=== PATIENT | female | born 1970 | race Caucasian/White ===

== ENCOUNTER 2016-12-24 12:41 | Observation (INO) | payer OTHER ==
--- NOTE | ~2016-12-24 | MR18 ---
[facility] A Service of [facility] RADIOLOGY TEXT RESULTS PATIENT: J LUIS CORTÉS LOCATION: [facility] 570-01 : [birth year] UNIT #: [id number] AGE: [address]: Brianna Castañeda MD SEX: F ORDER DR: [id number] [facility] [address] [facility] [place], [place] [address] [id number] E MR#: [id number] Acc #: [id number] NAME: J LUIS CORTÉS : 1970 SEX: F STUDY DATE/TIME: 12/24/2016 15:04 UNIT: [facility] ROOM: STUDY DESCRIPTION: MR Brain Wo Contrast Attending Physician: Luís Gaytan M.D. Ordering Physician: Luís Gaytan M.D. Primary Care Physician: Rena Suárez A.P.R.N. MRI CENTER REPORT This report is preliminary unless electronic signature is present. EXAM MRI brain without HISTORY Neurologic deficit, chest pain, headache, left arm pain. Woke up with symptoms at 4:30 a.m., blurred vision, tried to go to work this morning. Symptoms have been intermittent. History of hypertension and diabetes. TECHNIQUE Routine MRI of the brain was performed without contrast in the 1.5T system. There is a head CT pending samaritan from 2002. FINDINGS There is no evidence for a recent ischemic insult on the diffusion series. There is no MRI evidence for intracranial hemorrhage. Mild white matter signal abnormality nonspecific likely due to small vessel disease with too numerous to count small foci of signal abnormality in the deep white matter and periventricular white matter in particular. Major intracranial flow voids are maintained. No extraaxial fluid collection. Minor paranasal sinus disease. No sinus air-fluid level. Mastoid air cells are essentially clear. Midline structures unremarkable. No intracranial mass effect. IMPRESSION 1. There is no evidence for a recent ischemic insult on the diffusion series. 2. Mild probable sequelae of small vessel disease. STAT * RESULT Dictated by... [facility] A Service of [facility] RADIOLOGY TEXT RESULTS PATIENT: J LUIS CORTÉS LOCATION: [facility] 570-01 : [birth year] UNIT #: [id number] AGE: [address]: Brianna Castañeda MD SEX: F ORDER DR: Corazon Pugh M.D. THIS IS AN ELECTRONICALLY VERIFIED REPORT Corazon Pugh M.D. at 12/24/2016 9:32 PM ALLI/rigoberto TD: 12/24/2016 16:00 JOB #: [id number] MRI CENTER REPORT Page 1 of 1 COPY
--- NOTE | ~2016-12-24 | TH ---
Unit #: [id number] #: [id number] Patient: J LUIS CORTÉS [id number] [facility]. [address] [address] [id number] I MR#: [id number] NAME: J LUIS CORTÉS. : 1970 SEX: F STUDY DATE/TIME: 12/25/2016 UNIT: [facility] ROOM: 570 STUDY DESCRIPTION: Attending Physician: Brianna Castañeda M.D. Primary Care Physician: Rena Suárez A.P.R.N. CARDIOLOGY REPORT EXAM Exercise Cardiolite stress test, nuclear portion. PROCEDURE Using technetium 99m labeled Cardiolite, rest and stress SPECT images were obtained. Multiple SPECT images were obtained in various views including horizontal and vertical long axis and short axis views of the left ventricle. Images were obtained by gated SPECT method. Patient was administered 11.55 mCi of Cardiolite at rest. Patient was administered 32.6 mCi of Cardiolite at peak exercise. Total exercise time is 8 minutes and 7 seconds. On the stress images, there is normal perfusion noted. The rest images showed normal perfusion. Comparing rest and stress images, there is no stress-induced ischemia noted. The left ventricular ejection fraction is calculated to be 69%. There is no focal wall motion abnormality seen. CONCLUSION 1. No stress-induced ischemia noted. 2. The left ventricular ejection fraction is calculated to be 69%. 3. There is no focal wall motion abnormality seen. 4. Normal exercise Cardiolite stress test. 1. Dictated by... Koki Luna TD: 12/25/2016 14:29 JOB #: [id number] CARDIOLOGY REPORT Page 1 of 1 X Brianna Castañeda MD <ELECTRONICALLY SIGNED> 03/01/17 1429 CARDIOLOGY REPORT
--- NOTE | ~2016-12-24 | CR72 ---
[facility] A Service of [facility] RADIOLOGY TEXT RESULTS PATIENT: J LUIS CORTÉS LOCATION: [facility] 570- : [birth year] UNIT #: [id number] AGE: [address]: Brianna Castañeda MD SEX: F ORDER DR: [id number] [facility] [address] [facility]. [place], [place] [address] [id number] E MR#: [id number] Acc #: [id number] NAME: J LUIS CORTÉS. : 1970 SEX: F STUDY DATE/TIME: 12/24/2016 13:16 UNIT: [facility] ROOM: STUDY DESCRIPTION: CR Chest Single View Portable Attending Physician: Luís Gaytan M.D. Ordering Physician: Luís Gaytan M.D. Primary Care Physician: Rena Suárez A.P.R.N. MEDICAL IMAGING REPORT This report is preliminary unless electronic signature is present EXAM Chest, portable, 12/24/2016, 1316 hours. CLINICAL HISTORY 46-year-old woman complaining of chest pain and headache today. History of hypertension and diabetes and smoking. COMPARISON 09/04/2002 FINDINGS Portable upright chest demonstrates normal cardiac, mediastinal, and hilar contours. The lungs are clear. There is no effusion or pneumothorax. IMPRESSION No acute cardiopulmonary findings. No appreciable change from 09/04/2002. Dictated by... Pam De Dios M.D. THIS IS AN ELECTRONICALLY VERIFIED REPORT Pam De Dios M.D. at 12/25/2016 9:27 AM ALEISHA/sherlyn TD: 12/24/2016 14:31 JOB #: [id number] MEDICAL IMAGING REPORT Page 1 of 1 COPY
--- NOTE | ~2016-12-24 | EKG ---
PATIENT: J LUIS CORTÉS UNIT #: [id number] Ventricular Rate: 89 BPM Atrial Rate: 89 BPM P-R Interval: 162 ms QRS Duration: 96 ms Q-T Interval: 360 ms QTC Calculation(Bezet): 438 ms P M[place]: 46 degrees Calculated R [place]: 24 degrees Calculated T Marm[place]: 53 degrees Diagnosis Line: Normal sinus rhythm Diagnosis Line: Normal ECG Diagnosis Line: No previous ECGs available Diagnosis Line: Confirmed by TITO HERRERA MD ([id number]) on 12/26/2016 Diagnosis Line: 10:28:33 AM INTERPRETING MD: JAVIER TARIQ
--- NOTE | ~2016-12-24 | EKG ---
PATIENT: J LUIS CORTÉS UNIT #: [id number] Ventricular Rate: 65 BPM Atrial Rate: 65 BPM P-R Interval: 162 ms QRS Duration: 90 ms Q-T Interval: 422 ms QTC Calculation(Bezet): 438 ms P Shafter: 43 degrees Calculated R Shafter: 21 degrees Calculated T Shafter: 42 degrees Diagnosis Line: Normal sinus rhythm Diagnosis Line: Normal ECG Diagnosis Line: When compared with ECG of 24-DEC-2016 12:41, Diagnosis Line: (unconfirmed) Diagnosis Line: No significant change was found Diagnosis Line: Confirmed by ARGENIS BROWN MD ([id number]) on 12/25/2016 Diagnosis Line: 10:58:32 PM INTERPRETING MD: KEVIN TARIQ
--- NOTE | ~2016-12-24 | HP ---
Unit #: [id number] #: [id number] Patient: J LUIS CORTÉS [id number] [facility]. [address] [place], [place] [address] [id number] I MR#: [id number] NAME: J LUIS CORTÉS. ROOM: 570 Age: 46 Sex: F Admission Date: 12/24/2016 : 1970 Attending Physician: Brianna Castañeda M.D. Primary Care Physician: Rena Suárez A.P.R.N. HISTORY AND PHYSICAL HISTORY OF PRESENT ILLNESS This is a 46-year-old white female new to our group, with a past medical history of hypertension on oral medication. The patient also has a history of hyperlipidemia which she states is being managed with lifestyle modifications. She also has type 2 diabetes mellitus that is modified with diet. She is on no medications for hyperlipidemia or diabetes. Additional past medical history includes anxiety and active tobacco use. The patient has smoked one pack of cigarettes per day for many years. Additional risk factors for ischemic heart disease include family history of coronary artery disease. The patient presented to the emergency department with complaints of sharp chest pain located in the mid to left anterior chest. There is no radiation to the neck, jaws, shoulders or arms. There are no associated symptoms of nausea, vomiting, diaphoresis or dyspnea. She does have some shortness of breath with exertion which has been chronic. There are no reports of PND, orthopnea or lower extremity edema. The pain has been present for the last couple of months, but was worse yesterday. It is intermittent and usually lasts for a short period of time. However, yesterday it lasted for a much longer period of time and was more severe in intensity. There were no aggravating or alleviating factors. She denies dizziness, palpitations or syncope. In the emergency department her temperature was 98.5, pulse 93, respiratory rate 16, blood pressure 155/85, with an O2 saturation of 100% on room air. HCG was negative. She was given a baby dose of aspirin and sublingual nitroglycerin. She was admitted for further observation of chest pain. She did undergo an MRI of the brain without contrast due to headache, with reported blurred vision, but the patient did not tell me about this during the interview. MRI of the brain revealed no evidence of recent ischemic insults. There was mild probable small vessel disease. She was admitted and serial cardiac enzymes were obtained. She ruled out for a myocardial infarction. PAST MEDICAL HISTORY 1. No previous stress test or cardiac catheterization. 2. Hypertension on oral medications. 3. Hyperlipidemia, on lifestyle modifications only. 4. Diabetes mellitus type 2, on lifestyle modifications only. 5. Anxiety. PAST SURGICAL HISTORY 1. times two. 2. Uterine ablation. 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 She actively smokes a pack of cigarettes per day. There are no reports of alcohol or illicit drug use. She is fairly sedentary and does not exercise. FAMILY HISTORY Coronary artery disease in her parents. Her father had bypass surgery in his 70s. ALLERGIES Azithromycin. HOME MEDICATIONS 1. Losartan 100/12.5 mg p.o. daily. 2. Venlafaxine 75 mg p.o. daily. 3. Xanax 1 mg tablet p.o. daily p.r.n. anxiety. 4. Metoprolol succinate 100 mg p.o. daily. 5. Hydrochlorothiazide 12.5 mg p.o. daily. 6. Ibuprofen 200 mg p.o. daily. REVIEW OF SYSTEMS Ten point review of systems is negative except for those noted in history of present illness. PHYSICAL EXAMINATION GENERAL: This is a 46-year-old white female in no acute distress. VITALS: Temperature 98.5, pulse 70, blood pressure 137/77. HEENT: Mucous membranes dry. NECK: Supple. No jugular venous distension. No hepatojugular reflux. Normal carotid upstrokes. No carotid bruits. LUNGS: Bilateral breath sounds have good air entry throughout lung kat. Respirations even and unlabored. No rales, rhonchi or wheezes. HEART: S1 and S2. Regular rate and rhythm. No murmurs, rubs or gallops. ABDOMEN: Soft, nontender and nondistended. Positive bowel sounds auscultated in four quadrants. No ascites. EXTREMITIES: Lower extremities have not pretibial pitting edema. Dorsalis pedis pulses 2+. Capillary refill is 3 seconds. DIAGNOSTIC STUDIES IMAGING: MRI revealed probable mild small vessel disease. Chest x-ray revealed no acute findings. LABORATORY: White blood cell count 9.7, hemoglobin 14.8, hematocrit 44.4, platelets 410, sodium 135, potassium 3.2, chloride 97, CO2 27, BUN 12, creatinine 0.6, glucose 168, AST 16, ALT 18, alkaline phosphatase 48, troponin 0.03 and 0.03. Hemoglobin A1c 6.6. Total cholesterol 202, triglycerides 378, LDL 95, HDL 31, TSH 1.85, INR 1.0. CARDIOVASCULAR: Electrocardiogram reveals sinus rhythm with a ventricular rate of 65 beats per minute. Nonspecific ST-T wave changes. QTC 438 msec. ASSESSMENT 1. Recurrent chest pain, ruled out for myocardial infarction. Two-dimensional echocardiogram on 12/25/2016 revealed an ejection fraction of 65% with mild LVH, normal valves and RVSP of 32 mmHg. 2. Normal exercise Cardiolite stress test. Unit #: [id number] #: [id number] Patient: J LUIS CORTÉS 3. Hypertension. 4. Hyperlipidemia, uncontrolled. 5. Diabetes mellitus type 2. 6. Anxiety. 7. Headaches. MRI shows no acute findings. 8. Family history of coronary artery disease. 9. Active tobacco abuse. PLAN 1. The patient presented to the hospital with complaints of sharp chest pain that is recurrent, but recently worse. Cardiac enzymes were negative and EKG revealed no acute findings. She was scheduled for an exercise Cardiolite stress test and exercised for approximately 8 minutes with no chest pain. There was no ischemia on nuclear images. 2. Her blood pressure was elevated, but she has been taking her medications at night. She has been encouraged to take the medicines during daytime hours. She may need medication adjustment as an outpatient. Current blood pressure is 135/77. 3. TSH level was normal. Fasting lipid profile revealed elevated triglycerides and low LDL. The patient has been started on a statin. 4. Hemoglobin A1c is elevated at 6.6. The patient is on no medications for diabetes. She has been started on a new prescription of metformin. 5. She will need a followup in three months to reassess hemoglobin A1c. She would also benefit from a diabetic eye exam, microalbumin and foot exam. 6. The patient is in stable condition and will be discharged home today. Prescriptions have been provided for Lipitor, metformin and KCL. 7. A follow-up appointment has been arranged with Dr. Castañeda on 04/09/2017 at 11 a.m. Dictated by LISA Hairston M.D. TR/marek TD: 12/25/2016 16:08 JOB #: [id number] HISTORY AND PHYSICAL Page 1 of 1 X X HISTORY AND PHYSICAL
--- NOTE | ~2016-12-24 | ST ---
Unit #: [id number] #: [id number] Patient: J LUIS CORTÉS [id number] [facility]. [address] [address] [id number] I MR#: [id number] NAME: J LUIS CORTÉS. : 1970 SEX: F STUDY DATE/TIME: 12/25/2016 UNIT: [facility] ROOM: [facility] STUDY DESCRIPTION: Attending Physician: Brianna Castañeda M.D. Primary Care Physician: Rena Suárez A.P.R.N. CARDIOLOGY REPORT EXAM EKG portion of an exercise Cardiolite stress test. REASON FOR EXAM Chest pain. DISCUSSION Baseline EKG reveals sinus rhythm with a ventricular rate of 69 beats per minute. No acute ST or T-wave changes noted. Nonspecific ST-T wave changes in the inferior leads. The patient exercised on the treadmill according to Rohith protocol for 8 minutes and 7 seconds, achieving a workload of 10.1 METs. Maximal heart rate was 151 beats per minute, which is 87% of maximal age-predicted heart rate. Maximal blood pressure was high at 208/101 mmHg. Blood pressure improved in recovery at 169/89 but was still above goal. The patient did not receive some of her medications this morning. There were no complaints of chest pain. There were occasional PVCs noted. There were no ST or T wave changes to suggest ischemia. The test was stopped due to protocol completion. IMPRESSION 1. Negative EKG portion of exercise Cardiolite stress test. 2. There were no complaints of chest pain. 3. There were occasional premature ventricular complexes noted. 4. There were no ST or T wave changes to suggest ischemia. 5. The patient's blood pressure was elevated during stress test but improved in recovery. Blood pressure did remain above goal but she did not receive her medications this morning. The patient will be restarted on antihypertensives. 6. Please correlate with Cardiolite images. Dictated by... Tamiko Gallo APRN for Koki Luna TD: 12/25/2016 15:17 JOB #: [id number] Unit #: [id number] #: [id number] Patient: J LUIS CORTÉS CARDIOLOGY REPORT Page 1 of 1 X CARDIOLOGY REPORT
[2016-12-24 13:29] LABS: BASOPHIL# 0.1 X10e3 (0-0.3); BASOPHIL% 1.4 % (0-2.5); EOSINOPHIL# 0.3 X10e3 (0-0.7); HEMATOCRIT 44.4 % (35.0-45.0); HEMOGLOBIN 14.8 gm/dL (12.0-16.0); MEAN CELL VOLUME 87.4 FL (83-96); MEAN CORPUSCULAR HEMOGLOBIN 29.2 PG (28-34); MEAN CORPUSCULAR HGB CONC 33.5 g/dL (30-36); MEAN PLATELET VOLUME 7.9 FL (6.5-11.5); MONOCYTE# 0.5 X10e3 (0-1.0); MONOCYTE% 5.2 % (3.0-12.0); NEUTROPHIL# 4.8 X10e3 (1.5-7.1); NEUTROPHIL% 49.4 % (40-75); PLATELET COUNT 410 X10e3 (140-420); RED BLOOD COUNT 5.08 X10e (3.90-5.30); RED CELL DISTRIBUTION WIDTH 13.2 % (11.0-15.5); WHITE BLOOD COUNT 9.7 X10e3 (4.0-10.5)
[2016-12-24 13:30] LABS: DIFF IND NO
[2016-12-24 13:57] LABS: ALBUMIN SERUM 4.2 g/dL (3.5-5.0); BILIRUBIN, DIRECT 0.1 mg/dL (0.0-0.2); BILIRUBIN,INDIRECT 0.6 mg/dL (0.0-0.9); BILIRUBIN,TOTAL 0.7 mg/dL (0.2-2.0); CALCIUM SERUM 9.3 mg/dL (8.4-10.2); CREATININE SERUM 0.6 mg/dL (0.6-1.4); GLOM FILT RATE Estimated 107.8 mL/min (>60); POTASSIUM 3.2 mmol/L (3.5-5.1); PROTEIN TOTAL SERUM 7.5 g/dL (6.0-8.3)
[2016-12-24 14:22] LABS: PARTIAL THROMBOPLASTIN TIME 27.3 SECONDS (23.5-31.3); PROTHROMBIN TIME (PATIENT) 10.3 SECONDS (9.6-11.5)
[2016-12-24 15:01] LABS: %MB 1.2 % (0.0-4.0)
[2016-12-24 16:00] LABS: POC - CKMB <1.0 ng/mL (0.0-7.9); POC - TROPONIN <0.05 ng/mL (<=0.05)
[2016-12-24] MEDS ORDERED: VENLAFAXINE HCL75 M1 PO (16:09)
[2016-12-24] MEDS ORDERED: LOSARTAN-HCTZ1 EAC2 PO (16:10)
[2016-12-24] MEDS ORDERED: METOPROLOL SUC100 MG PO (16:10)
[2016-12-24] MEDS ORDERED: HYDROCHLOROTH12.5 M1 PO (16:10)
[2016-12-24] MEDS ORDERED: XANAX0.5 M1 PO (16:11)
[2016-12-24] MEDS ORDERED: ADVIL200 M1 PO (16:11)
[2016-12-25 00:49] LABS: %MB 1.2 % (0.0-4.0); MB 0.9 ng/ml
[2016-12-25 04:40] LABS: CHOLESTEROL 202 mg/dL (0-200); HDL CHOLESTEROL 31 mg/dL (35-95); LDL CHOLESTEROL 95 mg/dL (-130); LDL/HDL RATIO 3 RATIO (0-4); TRIGLYCERIDES 378 mg/dL (10-160)
[2016-12-25 05:00] LABS: %MB 1.7 % (0.0-4.0); MB 1.4 ng/ml
[2016-12-25] MEDS ORDERED: LIPITOR20 MG PO (16:16)
[2016-12-25] MEDS ORDERED: LOSARTAN POTASS50 MG PO (16:24)
[2016-12-25] MEDS ORDERED: ASPIRIN81 MG PO (16:25)
[2016-12-25] MEDS ORDERED: K-DUR20 ME1 PO (16:28)
[2016-12-25] MEDS ORDERED: GLUCOPHAGE500 MG PO (16:31)
== END 2016-12-25 18:06 | disposition home or self-care (01) | DRG 313 ==
LOC: CED 12:41 → CEDOF 16:00 → C5C 16:00 → CED 16:00 → CEDOF 16:22 → CED 16:22 → C5C 18:29 → CEDOF 18:29 → C5C 12-25 18:06
PROVIDERS: Emergency Medicine; Internal Medicine Cardiovascular Disease
DX: R07.89 Other chest pain (principal); I51.7 Cardiomegaly; I10 Essential (primary) hypertension; E78.5 Hyperlipidemia, unspecified; E11.9 Type 2 diabetes mellitus without complications; F41.9 Anxiety disorder, unspecified; F17.210 Nicotine dependence, cigarettes, uncomplicated; R51 Headache; Z82.49 Family history of ischemic heart disease and other diseases of the circulatory system; Z79.899 Other long term (current) drug therapy; Z79.1 Long term (current) use of non-steroidal anti-inflammatories (NSAID); Z98.890 Other specified postprocedural states; Z88.1 Allergy status to other antibiotic agents
CPT/HCPCS: 36415; 70551; 71010; 78452; 80048; 80061; 80076; 82550; 82553; 82947; 83036; 84443; 84484; 84703; 85025; 85610; 85730; 93005; 93017; 93306; 96372; 99285; A9500; G0378; J1650